=== PATIENT | male | born 1935 | race African-American/Black ===

== ENCOUNTER 2018-05-25 08:15 | Day surgery (SDC) | payer OTHER ==
[~2018-05-25] VITALS: Ht 30.5 cm; Wt 0.5 kg
== END 2018-05-25 11:05 | disposition home or self-care (01) ==
LOC: OR 08:15
PROC: 3E0R33Z Introduction of Anti-inflammatory into Spinal Canal, Percutaneous Approach (ICD-10-PCS; principal; 2018-05-25)
PROC: 3E0R3BZ Introduction of Anesthetic Agent into Spinal Canal, Percutaneous Approach (ICD-10-PCS; 2018-05-25)
DX: M46.1 Sacroiliitis, not elsewhere classified (principal); M53.3 Sacrococcygeal disorders, not elsewhere classified
CPT/HCPCS: J1020; J3490

== ENCOUNTER 2018-06-08 08:39 | Day surgery (SDC) | payer OTHER | END 2018-06-08 10:05 | disposition home or self-care (01) | LOC: OR 08:39 | PROC: 3E0U3BZ Introduction of Anesthetic Agent into Joints, Percutaneous Approach (ICD-10-PCS; principal; 2018-06-08) | PROC: 3E0U33Z Introduction of Anti-inflammatory into Joints, Percutaneous Approach (ICD-10-PCS; 2018-06-08) | DX: M53.3 Sacrococcygeal disorders, not elsewhere classified (principal); M46.1 Sacroiliitis, not elsewhere classified; M47.898 Other spondylosis, sacral and sacrococcygeal region | CPT/HCPCS: J1020; J3490 ==

== ENCOUNTER 2018-09-20 10:49 | Day surgery (SDC) | payer OTHER ==
[~2018-09-20] VITALS: Ht 175.3 cm; Wt 73.5 kg
== END 2018-09-20 12:40 | disposition home or self-care (01) ==
LOC: OR 10:49
PROC: 3E0T3TZ Introduction of Destructive Agent into Peripheral Nerves and Plexi, Percutaneous Approach (ICD-10-PCS; principal; 2018-09-20)
PROC: BR16YZZ Fluoroscopy of Lumbar Facet Joint(s) using Other Contrast (ICD-10-PCS; 2018-09-20)
DX: M47.817 Spondylosis without myelopathy or radiculopathy, lumbosacral region (principal)
CPT/HCPCS: J2001

== ENCOUNTER 2018-10-04 08:17 | Day surgery (SDC) | payer OTHER ==
[~2018-10-04] VITALS: Ht 30.5 cm; Wt 0.5 kg
== END 2018-10-04 10:45 | disposition home or self-care (01) ==
LOC: OR 08:17
PROC: 3E0T3TZ Introduction of Destructive Agent into Peripheral Nerves and Plexi, Percutaneous Approach (ICD-10-PCS; principal; 2018-10-04)
PROC: BR16YZZ Fluoroscopy of Lumbar Facet Joint(s) using Other Contrast (ICD-10-PCS; 2018-10-04)
DX: M47.817 Spondylosis without myelopathy or radiculopathy, lumbosacral region (principal)
CPT/HCPCS: J2001

== ENCOUNTER 2018-12-20 08:12 | Day surgery (SDC) | payer OTHER | END 2018-12-20 09:25 | disposition home or self-care (01) | LOC: OR 08:12 | PROC: 3E0R33Z Introduction of Anti-inflammatory into Spinal Canal, Percutaneous Approach (ICD-10-PCS; principal; 2018-12-20) | PROC: 3E0R3BZ Introduction of Anesthetic Agent into Spinal Canal, Percutaneous Approach (ICD-10-PCS; 2018-12-20) | DX: M53.3 Sacrococcygeal disorders, not elsewhere classified (principal); M46.1 Sacroiliitis, not elsewhere classified; M47.818 Spondylosis without myelopathy or radiculopathy, sacral and sacrococcygeal region | CPT/HCPCS: J1020; J3490 ==

== ENCOUNTER 2019-01-31 10:06 | Day surgery (SDC) | payer OTHER | END 2019-01-31 12:35 | disposition home or self-care (01) | LOC: OR 10:06 | PROC: 3E0R3BZ Introduction of Anesthetic Agent into Spinal Canal, Percutaneous Approach (ICD-10-PCS; principal; 2019-01-31) | PROC: 3E0R33Z Introduction of Anti-inflammatory into Spinal Canal, Percutaneous Approach (ICD-10-PCS; 2019-01-31) | DX: M53.3 Sacrococcygeal disorders, not elsewhere classified (principal); M46.1 Sacroiliitis, not elsewhere classified | CPT/HCPCS: J1020; J3490 ==

== ENCOUNTER 2019-03-16 10:36 | Outpatient (CLI) | payer OTHER | END 2019-03-16 22:29 | disposition home or self-care (01) | LOC: RAD 10:36 | DX: M17.0 Bilateral primary osteoarthritis of knee (principal) ==

== ENCOUNTER 2019-06-01 11:06 | Emergency (ER) | payer OTHER ==
[~2019-06-01] VITALS: Ht 175.3 cm; Wt 70.8 kg
[2019-06-01 11:18] VITALS: TEMP 99.1
[2019-06-01] MEDS ORDERED: LISI20TA11 PO (11:37)
[2019-06-01] MEDS ORDERED: AMLODIPINE BESYLATE PO (11:38)
[2019-06-01] MEDS ORDERED: HYDR10TA47A PO (11:38)
[2019-06-01] MEDS ORDERED: LOPE2CAP17 PO (11:38)
[2019-06-01] MEDS ORDERED: BENZONATATE100 MG PO (11:39)
[2019-06-01 12:07] LABS: PLATELET COUNT 210 K/uL (142-355)
[2019-06-01 12:16] LABS: POTASSIUM 4.2 mmol/L (3.6-5.2)
[2019-06-01 13:24] VITALS: BP 179/86
== END 2019-06-01 13:24 | disposition home or self-care (01) ==
LOC: ED 11:06
PROVIDERS: Emergency Medicine
DX: J06.9 Acute upper respiratory infection, unspecified (principal)
CPT/HCPCS: 36415; 80053; 85027; 87502; 87651; 99283

== ENCOUNTER 2019-09-05 09:59 | Day surgery (SDC) | payer OTHER ==
[~2019-09-05] VITALS: Ht 30.5 cm; Wt 0.5 kg
[~2019-09-05 09:59] MED LIST: AMLODIPINE BESYLATE PO; BENZONATATE100 MG PO; HYDR10TA47A PO; LISI20TA11 PO; LOPE2CAP17 PO
== END 2019-09-05 12:44 | disposition home or self-care (01) ==
LOC: OR 09:59
PROC: 3E0R33Z Introduction of Anti-inflammatory into Spinal Canal, Percutaneous Approach (ICD-10-PCS; principal; 2019-09-05)
PROC: B01BYZZ Fluoroscopy of Spinal Cord using Other Contrast (ICD-10-PCS; 2019-09-05)
DX: M51.16 Intervertebral disc disorders with radiculopathy, lumbar region (principal)
CPT/HCPCS: J1020

== ENCOUNTER 2019-11-28 09:20 | Outpatient (CLI) | payer OTHER | END 2019-11-28 20:25 | disposition home or self-care (01) | LOC: MRI 09:20 | DX: M50.20 Other cervical disc displacement, unspecified cervical region (principal) ==

== ENCOUNTER 2019-12-26 09:57 | Day surgery (SDC) | payer OTHER ==
[~2019-12-26] VITALS: Ht 30.5 cm; Wt 0.5 kg
== END 2019-12-26 11:07 | disposition home or self-care (01) ==
LOC: OR 09:57
PROC: 3E0R33Z Introduction of Anti-inflammatory into Spinal Canal, Percutaneous Approach (ICD-10-PCS; principal; 2019-12-26)
PROC: B01BYZZ Fluoroscopy of Spinal Cord using Other Contrast (ICD-10-PCS; 2019-12-26)
DX: M50.123 Cervical disc disorder at C6-C7 level with radiculopathy (principal)
CPT/HCPCS: J1020